=== PATIENT | female | born 1970 | race Caucasian/White ===

== ENCOUNTER 2018-06-03 06:13 | Day surgery (SDC) | payer OTHER ==
[2018-05-27 15:45] VITALS: BMI 32.4
[2018-06-03] MEDS ORDERED: CEFAZOLIN 2 GM in DEXTROSE 5%-WATER - 100 ML IVPB ONE (06:19)
[2018-06-03] MEDS ORDERED: oxyCODONE HCL 10 MG SUSTAINED ACTING TABLET PO STA (06:19)
--- NOTE | 2018-06-03 07:06 | HP ---
History & Physical Update - History History: No Change - Physical Physical: No Change - Assessment Assessment: No Change - Plan Plan: No Change (initial H&P is located in her paper chart. No new complaints or medications. Here today for elective ACDF. (pain up/down spine and radiates into her RUE))
[2018-06-03] MEDS ORDERED: THROMBIN (BOVINE) 5,000 UNIT VIAL TP ONE ×2 (07:07→08:58)
[2018-06-03] MEDS ORDERED: LIDOCAINE 1%/EPI 1:100000 (20 ML MULTI DOSE VIAL) ONE (07:07)
[2018-06-03] MEDS ORDERED: PROPOFOL 20 ML ONE ×9 (07:22→08:55)
[2018-06-03] MEDS ORDERED: fentaNYL CITRATE 250 MCG/5 ML VIAL ONE ×2 (07:22→08:40)
[2018-06-03] MEDS ORDERED: MIDAZOLAM HCL 2 MG/2 ML SINGLE DOSE VIAL ONE ×2 (07:22→07:31)
[2018-06-03] MEDS ORDERED: SUCCINYLCHOLINE CHLORIDE 200 MG/10 ML VIAL ONE (07:22)
[2018-06-03] MEDS ORDERED: DEXAMETHASONE SOD PHOSPHATE 4 MG/1 ML VIAL ONE (07:24)
[2018-06-03] MEDS ORDERED: LIDOCAINE HCL/PF 2% SDV 5ML VIAL ONE (07:24)
[2018-06-03] MEDS ORDERED: ONDANSETRON 4 MG/2 ML VIAL ONE (07:24)
[2018-06-03] MEDS ORDERED: BUPIVACAINE HCL/PF (5 MG/ML) 30 ML VIAL IJ ONE (07:31)
[2018-06-03] MEDS ORDERED: DEXAMETHASONE SOD PHOSPHATE/PF 10 MG/ML SDV ONE (07:31)
[2018-06-03] MEDS ORDERED: ceFAZolin SODIUM 1 GM VIAL ONE ×2 (08:30→14:37)
--- NOTE | 2018-06-03 10:02 | OP ---
Operative Note - Note: Operative Date: 06/03/18 Pre-Operative Diagnosis: Cervical stenosis with radiculopathy Operation: ACDF C4-C6 Post-Operative Diagnosis: Same as Pre-op Surgeon: David James Md Ophthalmologist: Yaron Burgess Anesthesiologist/BOW MAKER GIFT WRAPPING: Kelby Martinez Anesthesia: General Specimens Removed: C4/5, C5/6 discs Estimated Blood Loss (mls): 20 Fluid Volume Replaced (mls): 1,000 Operative Report Dictated: Yes
--- NOTE | 2018-06-03 10:04 | SURG ---
Surgery Forest Nursery Supervisor Note Forest Nursery Supervisor: Yaron Burgess PA-C Date of Service: 06/03/18 Diagnosis: C4/5, C5/6 Cervical stenosis with radiculopathy Procedure: Anterior Cervical Discectomy, Fusion C4/5, C5/6, allograft implant x2, neuromonitoring I was present for the entirety of the operative procedure. For further detail, please refer to operative report. Visit type - Case Type Case Type: Scheduled - New patient This patient is new to me today: Yes Date on this admission: 06/03/18
[2018-06-03] MEDS ORDERED: ACETAMINOPHEN 1000 MG/100 ML VIAL (NON FORMULARY) IVPB ONE (10:10)
[2018-06-03] MEDS ORDERED: oxyCODONE HCL 5 MG TABLET PO PRN ×3 (10:11→10:49)
--- NOTE | 2018-06-03 10:27 | OP ---
DATE OF OPERATION: 06/03/2018 PREOPERATIVE DIAGNOSIS: Cervical stenosis, C4-5, C5-6. POSTOPERATIVE DIAGNOSIS: Cervical stenosis, C4-5, C5-6. PROCEDURE PERFORMED: 1. Anterior cervical diskectomy and fusion, C4-5. 2. Anterior cervical diskectomy and fusion, C5-6. 3. Placement of instrumentation, C4 to C6. SURGEON: David James MD APPLICATION SUPPORT ENGINEER: ADITYA Landry ESTIMATED BLOOD LOSS: 50 mL INTRAVENOUS FLUIDS: Per Anesthesia. ANESTHESIA: General/superficial cervical block. COMPLICATIONS: None. DISPOSITION: Patient brought to the PACU in stable condition. INDICATIONS FOR SURGERY: The patient is a 47-year-old female who has been suffering from pain from her neck down her arm. X-rays and MRI were completed which noted that she had herniated disk at C4-5 and C5-6. She had gone through an exhaustive course of treatment for this, which included medications, physical therapy as well as injections. Unfortunately, her pain continued to persist despite all this. At this point, risks, benefits, and alternatives were discussed, and the patient consented to surgery. OPERATIVE NOTE: Patient was brought to the operating room by the anesthesia staff. After appropriate patient identification was performed, general anesthesia was administered. A superficial cervical block was also given. Patient was positioned prone onto the OR table with all areas of bony prominences well padded at this time. A shoulder roll was placed underneath her shoulder to extend her neck to the point that she could tolerate in the preoperative holding area. A needle was taped onto her neck to neelam off the C4-5 level. X-ray was taken to confirm this was correct. Needle was removed, and 10 mL of lidocaine with epinephrine were injected into her neck at this time. Her neck was prepped and draped in a sterile manner. At this point, a timeout was completed. A 2-inch incision was made on the left side of her neck. Dissection was carried down to the platysma. The platysma was cut in line with the skin incision. Next, the interval between the sternocleidomastoid and strap muscles was developed. Next, the interval between the carotid sheath and tracheoesophagus was developed. Peanuts were used to elevate off the prevertebral fascia. A needle was placed into the C4-5 disk. X-ray was taken to confirm this was correct. Needle was removed, and the microscope was brought in. Janet erickson was placed into the body of C4 and C6. The longus colli muscles were elevated off. Retractor was placed in. A knife was used to incise the disks, and distraction was applied. Using a series of pituitaries, Kerrisons, and curettes, diskectomy was completed at C4-5 and C5-6. The endplates were decorticated at this time. Cages filled with bone graft were placed into C4-5 and C5-6. Screws were placed into the body of C4, C5, and C6. [place] pins removed. AP and lateral x-rays confirmed the instrumentation to be in good position. Final tightening was performed. The platysma was closed with 2-0 Vicryl suture. Skin was closed with 3-0 Monocryl suture. Dermabond was applied. Steri-Strips were applied. A sterile dressing was applied. Patient was placed supine on the OR bed and brought to the PACU in stable condition. Karina RICE/[id number]
[2018-06-03] MEDS ORDERED: LABETALOL HCL 5 MG/1 ML (100MG/20 ML VIAL) ONE (10:40)
[2018-06-03] MEDS: LABETALOL HCL 5 MG/1 ML (100MG/20 ML VIAL) IVPUSH PRN ×2 (10:40→11:00)
[2018-06-03] MEDS ORDERED: ONDANSETRON 4 MG/2 ML VIAL IVPUSH PRN (10:49)
[2018-06-03] MEDS ORDERED: PROMETHAZINE HCL 25 MG/1 ML VIAL IVPUSH PRN (10:49)
[2018-06-03] MEDS ORDERED: oxyCODONE HCL 5 MG TABLET PO ONE (11:17)
[2018-06-03] MEDS ORDERED: KETOROLAC TROMETHAMINE 30 MG/1 ML VIAL ONE (11:44)
[2018-06-03] MEDS ORDERED: diazePAM 5 MG TABLET ONE ×2 (11:47→11:49)
[2018-06-03] MEDS ORDERED: KETOROLAC TROMETHAMINE 30 MG/1 ML VIAL IVPUSH ONE (12:11)
[2018-06-03] MEDS ORDERED: diazePAM 5 MG TABLET PO ONE (12:11)
[2018-06-03] MEDS ORDERED: diazePAM 2 MG TABLET PO ONE (13:00)
[2018-06-03 14:03] VITALS: TEMP 98.8
[2018-06-03] MEDS ORDERED: oxyCODONE HCL 5 MG TABLET ONE ×2 (15:24→16:39)
[2018-06-03] MEDS ORDERED: CEFAZOLIN 2 GM/D5W 2 GM/50 ML ML IVPB ONE (15:30)
[2018-06-03 17:33] VITALS: BP 163/81; PULSE 96
--- NOTE | 2018-06-07 16:34 | PATH ---
Surgical Pathology Report Patient Name: KATHI CASTLE [facility]. Rec. #: [id number] /Age/Gender: 1970 (Age: 47) / F Account: [id number] Location: [facility] Taken: 06/03/2018 Received: 06/03/2018 Reported: 06/07/2018 Physicians: David James M.D. Specimen(s) Received C4-5,C5-6 Clinical History Cervical stenosis Final Diagnosis DISC, C4-6, ANTERIOR CERVICAL DISCECTOMY WITH FUSION: INTERVERTEBRAL DISC TISSUE. Electronically Signed Francesca Knowles M.D. Gross Description Received in formalin labeled "C4-5, C5-6," is a 2.2 x 2.0 x 0.3 cm aggregate of [place] fragments of fibrocartilaginous tissue. The specimen is entirely submitted in one cassette. /06/04/2018 saudi06/04/2018
== END 2018-06-03 17:35 | disposition home or self-care (01) ==
LOC: FASUSAT 06:13
PROVIDERS: ATTEND Orthopaedic Surgery Orthopaedic Surgery of the Spine
PROC: 0RG10A0 Fusion of Cervical Vertebral Joint with Interbody Fusion Device, Anterior Approach, Anterior Column, Open Approach (ICD-10-PCS; 2018-06-03)
PROC: 0RG10K0 Fusion of Cervical Vertebral Joint with Nonautologous Tissue Substitute, Anterior Approach, Anterior Column, Open Approach (ICD-10-PCS; 2018-06-03)
PROC: 0RB30ZZ Excision of Cervical Vertebral Disc, Open Approach (ICD-10-PCS; principal; 2018-06-03 08:49)
DX: M48.02 Spinal stenosis, cervical region (principal)
CPT/HCPCS: 22551; 22552; 22845; 22853; C1889; 72050-TC-FY; 76000-TC-FY; 84703; 88304-TC; 94760; J0131